=== PATIENT | female | born 1970 | race Caucasian/White ===

== ENCOUNTER 2017-12-17 17:02 | Emergency (ER) | payer MEDICARE ==
[~2017-12-17] VITALS: Ht 160 cm; Wt 90.7 kg
[~2017-12-17 17:02] MED LIST: ABILIFY10 MG PO; AMITRIPTYLINE H25 M3 GT; AMOXICILLIN 50500 M1 PO; BACTRIM DS TAB1 EACH PO; CYMBALTA60 MG PO; LEVSIN SL; LIPITOR10 MG PO; METROGEL-VAGINA70 GM VG; NORCO 5-325 TA1 EACH PO; PROTONIX40 MG PO; ZANTAC 150MG T150 M1 PO; ZOFRAN4 MG PO
[2017-12-17] MEDS ORDERED: NEURONTIN 300300 M1 (17:20)
[2017-12-17] MEDS ORDERED: ATIVAN1 MG PO (17:20)
[2017-12-17] MEDS ORDERED: BACLOFEN 10MG T10 MG PO (17:21)
[2017-12-17] MEDS ORDERED: CELEXA20 MG PO (17:21)
[2017-12-17 17:42] LABS: URINE BILIRUBIN NEGATIVE (Negative); URINE BLOOD 1+ (Negative); URINE CLARITY CLEAR; URINE COLOR YELLOW; URINE GLUCOSE-RANDOM NEGATIVE (Negative); URINE KETONES NEGATIVE (Negative); URINE LEUKOCYTES-REFLEX NEGATIVE (Negative); URINE NITRITE-REFLEX NEGATIVE (Negative); URINE PROTEIN NEGATIVE (Negative); URINE SPECIFIC GRAVITY >= 1.030 (1.005-1.030); URINE UROBILINOGEN 0.2 E.U./dl (0.2-1.0)
[2017-12-17 18:00] LABS: HYALINE CASTS 0-3 Few /LPF (None Seen); MUCUS >6 Heavy strn/LPF (None Seen); SQUAMOUS >10 Many /LPF (0-3)
[2017-12-17 18:01] LABS: BACTERIA-REFLEX 1-9 Few /HPF (None Seen); CRYSTALS None Seen /LPF (None Seen); URINE RBC 0-2 Rare /HPF (0-2); URINE WBC-REFLEX 0-5 Rare /HPF (0-5)
[2017-12-17] MEDS ORDERED: IBUPROFEN 600600 M1 PO (18:03)
[2017-12-17] MEDS ORDERED: AMOXICILLIN 50500 MG PO (18:03)
[2017-12-17 18:08] VITALS: BP 148/80
== END 2017-12-17 18:08 | disposition home or self-care (01) ==
LOC: M.ERS 17:02
PROVIDERS: Nurse Practitioner Family
DX: J06.9 Acute upper respiratory infection, unspecified (principal); F31.9 Bipolar disorder, unspecified; G89.29 Other chronic pain; M54.9 Dorsalgia, unspecified; F25.9 Schizoaffective disorder, unspecified; F17.210 Nicotine dependence, cigarettes, uncomplicated; Z90.710 Acquired absence of both cervix and uterus; Z88.8 Allergy status to other drugs, medicaments and biological substances

== ENCOUNTER 2018-02-10 11:29 | Emergency (ER) | payer MEDICARE ==
[~2018-02-10] VITALS: Ht 160 cm; Wt 93.0 kg
[~2018-02-10 11:29] MED LIST changes: +AMOXICILLIN 50500 MG PO; +ATIVAN1 MG PO; +BACLOFEN 10MG T10 MG PO; +CELEXA20 MG PO; +IBUPROFEN 600600 M1 PO; +NEURONTIN 300300 M1
[2018-02-10 11:33] VITALS: BP 125/85
[2018-02-10] MEDS ORDERED: LATUDA20 MG PO (11:35)
[2018-02-10] MEDS ORDERED: LITHIUM CARBON600 MG PO (11:36)
[2018-02-10] MEDS ORDERED: ATIVAN1 MG PO (12:20)
== END 2018-02-10 12:31 | disposition home or self-care (01) ==
LOC: M.ERS 11:29
DX: H92.03 Otalgia, bilateral (principal); Z76.0 Encounter for issue of repeat prescription; F31.9 Bipolar disorder, unspecified; G89.29 Other chronic pain; M54.9 Dorsalgia, unspecified; Z88.8 Allergy status to other drugs, medicaments and biological substances; Z90.710 Acquired absence of both cervix and uterus

== ENCOUNTER 2018-04-08 10:31 | Emergency (ER) | payer MEDICARE ==
[~2018-04-08] VITALS: Ht 172.7 cm; Wt 107.5 kg
[~2018-04-08 10:31] MED LIST changes: +LATUDA20 MG PO; +LITHIUM CARBON600 MG PO
[2018-04-08] MEDS ORDERED: RISPERDAL 1 MG T1 MG PO (10:47)
[2018-04-08] MEDS ORDERED: IBUPROFEN 600600 M1 PO (10:47)
[2018-04-08] MEDS ORDERED: SERTRALINE HCL50 MG PO (10:47)
[2018-04-08 11:15] LABS: URINE BILIRUBIN NEGATIVE (Negative); URINE BLOOD TRACE (Negative); URINE CLARITY CLEAR; URINE COLOR ORANGE; URINE GLUCOSE-RANDOM TRACE (Negative); URINE KETONES NEGATIVE (Negative); URINE PROTEIN TRACE (Negative); URINE SPECIFIC GRAVITY 1.025 (1.005-1.030)
[2018-04-08 11:24] LABS: URINE LEUKOCYTES-REFLEX 3+ (Negative); URINE NITRITE-REFLEX POSITIVE (Negative)
[2018-04-08] MEDS ORDERED: HYDROXYZINE HCL25 M1 PO (11:32)
[2018-04-08] MEDS ORDERED: BACTRIM DS TAB1 EAC1 PO (11:33)
[2018-04-08 11:39] VITALS: BP 125/87
[2018-04-08 11:42] LABS: URINE WBC-REFLEX 6-15 Few /HPF (0-5)
[2018-04-08 11:43] LABS: URINE RBC 0-2 Rare /HPF (0-2)
[2018-04-08 11:44] LABS: MUCUS >6 Heavy strn/LPF (None Seen)
[2018-04-08 11:45] LABS: CRYSTALS None Seen /LPF (None Seen); HYALINE CASTS 0-3 Few /LPF (None Seen); SQUAMOUS >10 Many /LPF (0-3)
== END 2018-04-08 11:40 | disposition home or self-care (01) ==
LOC: M.ERS 10:31
PROVIDERS: Nurse Practitioner Family
DX: N30.90 Cystitis, unspecified without hematuria (principal); F41.9 Anxiety disorder, unspecified; F31.9 Bipolar disorder, unspecified; G89.29 Other chronic pain; M54.9 Dorsalgia, unspecified; G62.9 Polyneuropathy, unspecified; F25.9 Schizoaffective disorder, unspecified; F17.210 Nicotine dependence, cigarettes, uncomplicated; Z90.710 Acquired absence of both cervix and uterus; Z88.8 Allergy status to other drugs, medicaments and biological substances; Z88.6 Allergy status to analgesic agent

== ENCOUNTER 2018-05-01 19:14 | Emergency (ER) | payer MEDICARE ==
[~2018-05-01] VITALS: Ht 160 cm; Wt 90.7 kg
[~2018-05-01 19:14] MED LIST changes: +BACTRIM DS TAB1 EAC1 PO; +HYDROXYZINE HCL25 M1 PO; +RISPERDAL 1 MG T1 MG PO; +SERTRALINE HCL50 MG PO
[2018-05-01] MEDS ORDERED: KEFLEX500 M1 (19:25)
[2018-05-01] MEDS ORDERED: CYCLOBENZAPRINE5 MG PO (19:34)
[2018-05-01] MEDS ORDERED: VOLTAREN GEL 1100 G2 TOP (19:34)
[2018-05-01 19:43] VITALS: BP 128/82
== END 2018-05-01 19:43 | disposition home or self-care (01) ==
LOC: M.ERS 19:14
DX: G89.29 Other chronic pain (principal); M54.9 Dorsalgia, unspecified; F31.9 Bipolar disorder, unspecified; G62.9 Polyneuropathy, unspecified; F25.9 Schizoaffective disorder, unspecified; E66.01 Morbid (severe) obesity due to excess calories; F17.210 Nicotine dependence, cigarettes, uncomplicated; Z68.35 Body mass index [BMI] 35.0-35.9, adult; Z90.710 Acquired absence of both cervix and uterus; Z88.8 Allergy status to other drugs, medicaments and biological substances

== ENCOUNTER 2019-08-14 15:06 | Emergency (ER) | payer OTHER, MEDICAID ==
[~2019-08-14] VITALS: Ht 160 cm; Wt 90.7 kg
[~2019-08-14 15:06] MED LIST changes: +CYCLOBENZAPRINE5 MG PO; +KEFLEX500 M1; +VOLTAREN GEL 1100 G2 TOP
[2019-08-14] MEDS ORDERED: LOXAPINE50 MG PO (15:22)
[2019-08-14] MEDS ORDERED: VRAYLAR6 MG PO (15:22)
[2019-08-14] MEDS ORDERED: TRAZODONE HCL100 MG PO (15:22)
[2019-08-14] MEDS ORDERED: LOXAPINE25 MG PO (15:22)
[2019-08-14] MEDS ORDERED: LORAZEPAM 1 MG T1 MG PO (15:23)
[2019-08-14 15:52] LABS: INFLUENZA A ANTIGEN Negative (Negative); INFLUENZA B ANTIGEN Negative (Negative)
[2019-08-14] MEDS ORDERED: TYLENOL WITH CO1 TA1 PO (17:04)
[2019-08-14] MEDS ORDERED: AUGMENTIN 875-1 EACH PO (17:04)
[2019-08-14] MEDS ORDERED: CIPRODEX OTIC7.5 ML OTIC (17:04)
[2019-08-14 17:10] VITALS: BP 144/96
== END 2019-08-14 17:11 | disposition home or self-care (01) ==
LOC: M.ERS 15:06
PROVIDERS: Nurse Practitioner Family
DX: H66.92 Otitis media, unspecified, left ear (principal); H72.92 Unspecified perforation of tympanic membrane, left ear; F31.9 Bipolar disorder, unspecified; G89.29 Other chronic pain; E66.01 Morbid (severe) obesity due to excess calories; Z68.35 Body mass index [BMI] 35.0-35.9, adult; Z79.899 Other long term (current) drug therapy; Z88.1 Allergy status to other antibiotic agents; Z90.710 Acquired absence of both cervix and uterus; Z88.8 Allergy status to other drugs, medicaments and biological substances

== ENCOUNTER 2020-10-14 20:33 | Emergency (ER) | payer OTHER, MEDICAID ==
[~2020-10-14] VITALS: Ht 160 cm; Wt 122.5 kg
[~2020-10-14 20:33] MED LIST changes: +AUGMENTIN 875-1 EACH PO; +CIPRODEX OTIC7.5 ML OTIC; +LORAZEPAM 1 MG T1 MG PO; +LOXAPINE25 MG PO; +LOXAPINE50 MG PO; +TRAZODONE HCL100 MG PO; +TYLENOL WITH CO1 TA1 PO; +VRAYLAR6 MG PO
[2020-10-14 21:08] LABS: URINE BILIRUBIN NEGATIVE (Negative); URINE BLOOD 3+ (Negative); URINE CLARITY CLEAR; URINE COLOR YELLOW; URINE GLUCOSE-RANDOM NEGATIVE (Negative); URINE KETONES NEGATIVE (Negative); URINE LEUKOCYTES-REFLEX NEGATIVE (Negative); URINE NITRITE-REFLEX NEGATIVE (Negative); URINE PROTEIN NEGATIVE (Negative); URINE UROBILINOGEN 0.2 E.U./dl (0.2-1.0)
[2020-10-14 21:15] LABS: CASTS None Seen /LPF (None Seen); CRYSTALS None Seen /LPF (None Seen); MUCUS None Seen strn/LPF (None Seen); SQUAMOUS >10 Many /LPF (0-3)
[2020-10-14 21:16] LABS: BACTERIA-REFLEX 1-9 Few /HPF (None Seen); URINE RBC 3-10 Few /HPF (0-2); URINE WBC-REFLEX 0-5 Rare /HPF (0-5)
[2020-10-14 21:34] LABS: ABSOLUTE BASOPHILS 0.1 thou/uL (0.0-0.2); ABSOLUTE EOSINOPHILS 0.1 thou/uL (0.0-0.7); ABSOLUTE LYMPHOCYTES 3.9 thou/uL (0.8-5.3); ABSOLUTE MONOCYTES 0.6 thou/uL (0.0-1.2); ABSOLUTE NEUTROPHILS 3.6 thou/uL (1.6-8.1); BASOPHILS 0.6 %; EOSINOPHILS 1.8 %; HEMATOCRIT 45.4 % (37.0-47.0); HEMOGLOBIN 15.1 gm/dL (12.0-15.0); LYMPHOCYTES 46.4 %; MCH 30.1 pg (26.0-34.0); MCHC 33.3 g/dL (28.0-37.0); MCV 90.4 fL (80.0-100.0); MONOCYTES 7.6 %; MPV 8.8 fl. (7.2-11.1); NUCLEATED RBCS 0 /100WBC; PLATELET COUNT* 204 thou/uL (150-400); POLYS 43.6 %; RBC 5.03 mil/uL (4.20-5.00); RDW-CV 14.3 % (10.5-14.5); WBC 8.3 thou/uL (4.0-11.0)
[2020-10-14 21:42] LABS: CALCIUM 8.8 mg/dL (8.5-10.1); POTASSIUM 3.1 mmol/L (3.5-5.1)
[2020-10-14] MEDS ORDERED: PREDNISONE50 MG PO (22:08)
[2020-10-14] MEDS ORDERED: PROAIR HFA8.5 GM INH (22:08)
[2020-10-14 23:10] VITALS: BP 132/76
== END 2020-10-14 23:12 | disposition home or self-care (01) ==
LOC: M.ERS 20:33
PROVIDERS: Emergency Medicine
DX: R31.9 Hematuria, unspecified (principal); J40 Bronchitis, not specified as acute or chronic; Z20.822 Contact with and (suspected) exposure to COVID-19; G89.29 Other chronic pain; G62.9 Polyneuropathy, unspecified; E66.01 Morbid (severe) obesity due to excess calories; Z68.42 Body mass index [BMI] 45.0-49.9, adult; Z90.710 Acquired absence of both cervix and uterus; Z88.8 Allergy status to other drugs, medicaments and biological substances

== ENCOUNTER 2021-03-19 21:52 | Inpatient (IN) | payer OTHER, MEDICAID ==
[~2021-03-19] VITALS: Ht 160 cm; Wt 115.3 kg
[~2021-03-19 21:52] MED LIST changes: -NEURONTIN 300300 M1; +NEURONTIN 300M300 M2 PO; +PREDNISONE50 MG PO; +PROAIR HFA8.5 GM INH
[2021-03-19 22:07] VITALS: BP 211/90
[2021-03-19] MEDS ORDERED: MELOXICAM15 MG PO (22:11)
[2021-03-19 22:35] LABS: ABSOLUTE BASOPHILS 0.1 thou/uL (0.0-0.2); ABSOLUTE EOSINOPHILS 0.2 thou/uL (0.0-0.7); ABSOLUTE LYMPHOCYTES 2.9 thou/uL (0.8-5.3); EOSINOPHILS 1.7 %; HEMATOCRIT 47.1 % (37.0-47.0); HEMOGLOBIN 15.7 gm/dL (12.0-15.0); LYMPHOCYTES 28.5 %; MCH 30.2 pg (26.0-34.0); MCHC 33.4 g/dL (28.0-37.0); MCV 90.4 fL (80.0-100.0); MONOCYTES 10.2 %; NUCLEATED RBCS 0 /100WBC; PLATELET COUNT* 208 thou/uL (150-400); POLYS 58.6 %; RBC 5.21 mil/uL (4.20-5.00); RDW-CV 14.7 % (10.5-14.5); WBC 10.2 thou/uL (4.0-11.0)
[2021-03-19 22:46] LABS: CALCIUM 8.8 mg/dL (8.5-10.1); CREATININE 0.9 mg/dL (0.6-1.3); POTASSIUM 3.6 mmol/L (3.5-5.1)
[2021-03-19 23:03] LABS: ALBUMIN 3.2 g/dL (3.4-5.0); TOTAL BILIRUBIN 0.4 mg/dL (<0.1-1.0); TOTAL PROTEIN 6.9 g/dL (6.4-8.2)
[2021-03-19 23:42] LABS: URINE BILIRUBIN NEGATIVE (Negative); URINE BLOOD TRACE (Negative); URINE CLARITY CLEAR; URINE COLOR YELLOW; URINE GLUCOSE-RANDOM NEGATIVE (Negative); URINE KETONES NEGATIVE (Negative); URINE LEUKOCYTES-REFLEX NEGATIVE (Negative); URINE NITRITE-REFLEX NEGATIVE (Negative); URINE PROTEIN NEGATIVE (Negative); URINE SPECIFIC GRAVITY >= 1.030 (1.005-1.030); URINE UROBILINOGEN 0.2 E.U./dl (0.2-1.0)
[2021-03-20 06:30] VITALS: BP 142/92
[2021-03-20 08:40] VITALS: BP 150/85
[2021-03-20 09:00] VITALS: BP 128/89
[2021-03-20 11:13] VITALS: BP 128/89
[2021-03-20 11:30] VITALS: BP 164/106
--- NOTE | 2021-03-20 11:43 | EKG ---
[place] [address] ELECTROCARDIOGRAM REPORT Name: ESVIN HENRYRICRONAN Pimentel Room: [address]#: [id number] Admission: 03/20/21 Attend Phys: Ronald Jim, Discharge: Date of : 70 Date of Service: 03/19/215 Report #: [id number] THIS REPORT FOR: //name// [facility] ED Test Date: 2021-03-19 Test Time: 22:25:22 Pat Name: SATURNINO HENRY Department: Room: [facility] Gender: F Pick Up Driver: : 1970 Requested By: Elva Candelaria Order Number: [id number] MD: Mathew Orellana Measurements Intervals [place] Rate: 103 P: 69 MD: 151 QRS: 71 QRSD: 87 T: 57 QT: 339 QTc: 444 Interpretive Statements Sinus tachycardia No previous ECG available for comparison Electronically Signed On 03-20-2021 11:42:47 CDT by Mathew Orellana [email or web address] <ELECTRONICALLY SIGNED> By: Rolly Orellana MD, [facility] 03/20/21 1142 2225 2225 Rolly Orellana MD, [facility] /EPI
--- NOTE | 2021-03-20 16:09 | 2DMMODE ---
[place] [address] 2 D/M-MODE ECHOCARDIOGRAM Name: SATURNINO HENRY Margarito Room: [address] MRosettaRRosetta#: [id number] Admission: 03/20/21 Attend Phys: Ronald Jim, Discharge: Date of : 70 Date of Service: 03/20/21 1609 Report #: [id number] THIS REPORT FOR: cc: May Singh,Rolly Mcneill MD [facility] ~ APPROVED REPORT Study performed: 03/20/2021 11:06:59 EXAM: Comprehensive 2D, Doppler, and color-flow Echocardiogram Patient Location: In-Patient Room #: 225 Status: routine BSA: 2.16 HR: 67 bpm BP: 150/85 mmHg Rhythm: NSR Other Information Study Quality: Good Indications Dyspnea 2D Dimensions IVSd: 12.09 (7-11mm) LVOT Diam: 20.89 (18-24mm) LVDd: 43.90 mm PWd: 10.79 (7-11mm) Ascending Ao: 33.85 (22-36mm) LVDs: 27.17 (25-40mm) Aortic Root: 30.36 mm Volumes Left Atrial Volume (Systole) LA ESV Index: 34.40 mL/m2 Aortic Valve AoV Peak Waldo.: 1.55 m/s AO Peak Gr.: 9.59 mmHg LVOT Max P.52 mmHg AO Mean Gr.: 5.72 mmHg LVOT Mean P.91 mmHg LVOT Max V: 1.37 m/s AO V2 VTI: 26.24 cm LVOT Mean V: 0.91 m/s INDERJIT (VTI): 3.36 cm2 LVOT V1 VTI: 25.71 [place] [address] 2 D/M-MODE ECHOCARDIOGRAM Name: SATURNINO HENRY Room: [address]R.#: [id number] Admission: 03/20/21 Attend Phys: Ronald Jim, Discharge: Date of : 70 Date of Service: 03/20/21 1609 Report #: [id number] Mitral Valve E/A Ratio: 1.05 MV Decel. Time: 217.55 ms MV E Max Waldo.: 1.08 m/s MV PHT: 63.09 ms MVA (PHT): 3.49 cm2 TDI E/Lateral E': 9.82 E/Medial E': 7.71 Medial E' Waldo.: 0.14 m/s Lateral E' Waldo.: 0.11 m/s Pulmonary Valve PV Peak Waldo.: 1.13 m/s PV Peak Gr.: 5.11 mmHg Left Ventricle The left ventricle is normal size. There is normal LV segmental wall motion. There is normal left ventricular wall thickness. Left ventricular systolic function is normal. The left ventricular ejection fraction is within the normal range. LVEF is 55-60%. Grade I - abnormal relaxation pattern. Right Ventricle The right ventricle is normal size. The right ventricular systolic function is normal. Atria The left atrium size is normal. The right atrium size is normal. Aortic Valve The aortic valve is normal in structure. No aortic regurgitation is present. There is no aortic valvular stenosis. Mitral Valve The mitral valve is normal in structure. Trace mitral regurgitation. No evidence of mitral valve stenosis. Tricuspid Valve The tricuspid valve is normal in structure. Unable to assess PA pressure. Trace tricuspid regurgitation. Pulmonic Valve The pulmonary valve is normal in structure. There is no pulmonic [place] [address] 2 D/M-MODE ECHOCARDIOGRAM Name: SATURNINO HENRY Room: [address]#: [id number] Admission: 03/20/21 Attend Phys: Ronald Jim, Discharge: Date of : 70 Date of Service: 03/20/21 1609 Report #: [id number] Great Vessels The aortic root is normal in size. IVC is normal in size and collapses >50% with inspiration. Pericardium There is no pericardial effusion. <Conclusion> LVEF is 55-60%. The left ventricle is normal size. There is normal left ventricular wall thickness. There is normal LV segmental wall motion. The aortic valve is normal in structure. Trace mitral regurgitation. Unable to assess PA pressure. Trace tricuspid regurgitation. Grade I - abnormal relaxation pattern. <ELECTRONICALLY SIGNED> By: Rolly Orellana MD, FACC 03/20/21 1609 1609 1609 Rolly Orellana MD, FACC /INF
--- NOTE | 2021-03-20 16:33 | NUR ---
Admitted from AMBULANCE Admission Assessment MENTAL STATUS UPON ADM A&O X3 Living Arrangements: HOUSE Lives with: or they live with patient DAUGHTER KAREEM GODWIN [phone] SUPPORTMENT SYSTEM DAUGHTER Can patient return to prior living arrangements? YES Activities of daily living: Independent
[2021-03-20 20:00] VITALS: BP 159/94
--- NOTE | 2021-03-20 20:00 | NUR ---
RECEIVED REPORT AND ASSUMED CARE OF PT, ASESSMENT COMPLETED. PT USING CALL LIGHT FREQ FOR MULTIPLE THINGS. ATTEMPTED TO EDUCATE AND REASSURE PT. O2 ON AT 3L/NC. TELEMETRY ON SHOWING ST. BLE EDEMA 2+. WILL CONT TO MONITOR AND ASSIST NEEDED. REMAINS IN ISOLATION DUE TO COVID PENDING.
[2021-03-21] VITALS: BP 163/84
--- NOTE | 2021-03-21 03:54 | NUR ---
PT RESTLESS AND SOME WHAT DEMANDING. REQUESTING HER BUBBILER OFF NOW, KEEPING HER AWAKE. INCREASED O2 TO 5L/NC DUE TO SAT STAYING AT 89%. ASKING FOR ANOTHER TRAZADONE, EXPLAINED HS ONLY.
[2021-03-21 04:00] VITALS: BP 160/104
[2021-03-21 04:44] LABS: ABSOLUTE BASOPHILS 0.1 thou/uL (0.0-0.2); ABSOLUTE LYMPHOCYTES 2.5 thou/uL (0.8-5.3); ABSOLUTE MONOCYTES 0.8 thou/uL (0.0-1.2); ABSOLUTE NEUTROPHILS 10.7 thou/uL (1.6-8.1); BASOPHILS 0.7 %; EOSINOPHILS 0.1 %; HEMATOCRIT 49.8 % (37.0-47.0); HEMOGLOBIN 16.1 gm/dL (12.0-15.0); LYMPHOCYTES 17.8 %; MCH 29.6 pg (26.0-34.0); MCHC 32.3 g/dL (28.0-37.0); MCV 91.6 fL (80.0-100.0); MONOCYTES 5.7 %; MPV 9.3 fl. (7.2-11.1); NUCLEATED RBCS 0 /100WBC; PLATELET COUNT* 207 thou/uL (150-400); POLYS 75.7 %; RBC 5.43 mil/uL (4.20-5.00); RDW-CV 14.7 % (10.5-14.5); WBC 14.2 thou/uL (4.0-11.0)
--- NOTE | 2021-03-21 06:46 | NUR ---
INFORMED PT THAT PCR WAS NEGATIVE AND THEN ASKING IF SHE COULD GO HOME. EXPLAINED OXYGEN LEVEL AND WOULD LIKE IT TO STAY AT LEAST 92% ON RA. PT CURRENTLY ON 5L/NC WITH SAT OF 90%. DENIES SOA. UP TO BSC WITH STEADY GAIT. TELEMETRY CONT TO SHOW ST. HS GOALS OF REST AND SAFETY ACHIEVED. HOURLY ROUNDING OBSERVED.
[2021-03-21 09:11] LABS: CHOLESTEROL 196 mg/dL (<200); HDL CHOLESTEROL 47 mg/dL (>40); LDL CHOLESTEROL 137 mg/dL (<100); SERUM ASSESSMENT Clear; TC:HDL 4.2 Ratio (Not establshd); TRIGLYCERIDE 61 mg/dL (<150); VLDL 12 mg/dL (<40)
[2021-03-21 12:00] VITALS: BP 154/92
[2021-03-21 12:26] LABS: POTASSIUM 3.6 mmol/L (3.5-5.1)
[2021-03-21 12:29] LABS: MAGNESIUM 1.8 mg/dL (1.8-2.4); PHOSPHORUS* 2.9 mg/dL (2.5-4.9)
--- NOTE | 2021-03-21 15:34 | NUR ---
PLAN OF CARE: PHYSICIAN INFORMS OF PLAN FOR THE PT TO D/C HOME PENDING ABLE TO WEAN PT'S O2 NEEDS AND PULM RECOMMENDATIONS. PT MAY NEED HOME OXYGEN AT D/C. CM WILL REMAIN AVAILABLE TO ASSIST AND FOLLOW NEEDED.
[2021-03-21 16:00] VITALS: BP 145/88
--- NOTE | 2021-03-21 17:51 | CON ---
[address] [address] CONSULTATION Name: SATURNINO HENRY Room: [address] IN M.R.#: [id number] Admission: 03/21/21 Attend Phys: Ronald Jim MD Discharge: Date of : 70 Report #: [id number] THIS REPORT FOR: cc: May Singh,Brooks Sequeira MD [facility] ~ cc: May Singh DO DATE OF CONSULTATION: 03/21/2021 CARDIOLOGY CONSULTATION HISTORY OF PRESENT ILLNESS: The patient is a 50-year-old single white female who I was asked to see in the hospital today because of shortness of breath. The patient has no previous history of heart disease. She is not very active at this time. She does smoke a half pack of cigarettes a day. Recently, she has had increasing shortness of breath. She does cough. She has occasional edema. Yesterday, she apparently had a spider bite in her chest. Her ex- brought her to the emergency room where she was admitted. Cardiology consultation requested. She denies exertional tightness in her chest, palpitations or syncope. PAST MEDICAL HISTORY: She has had carpal tunnel surgery, hysterectomy, manic depressive illness. No history of hypertension, diabetes or hyperlipidemia. CURRENT MEDICATIONS: Include Ativan, baclofen, meloxicam, gabapentin, trazodone. ALLERGIES: SHE HAS AN ALLERGY TO BENTYL. FAMILY HISTORY: Father had a pacemaker. SOCIAL HISTORY: She is , currently lives with her ex- here in [place]. She goes for walks every day. Smokes half pack of cigarettes a day. No alcohol abuse. No illicit drug use. REVIEW OF SYSTEMS: She has no history of stroke, asthma, liver disease, kidney disease, cancer or chronic skin condition. She has a history of manic depressive illness. She is followed by psychiatrist. PHYSICAL EXAMINATION: VITAL SIGNS: On admission, she had a blood pressure 130/80, pulse 80. She is afebrile. HEENT: She was anicteric. Conjunctivae pink. Mucous membranes moist. NECK: Veins do not appear distended. No carotid bruits. [place] [address] CONSULTATION Name: SATURNINO HENRY Room: [address] IN [facility]#: [id number] Admission: 03/21/21 Attend Phys: Ronald Jim MD Discharge: Date of : 70 Report #: [id number] CHEST: Clear to auscultation. CARDIAC: Regular rate and rhythm without rub. ABDOMEN: Obese. EXTREMITIES: Had no pitting edema. SKIN: Warm and dry. NEUROLOGIC: Nonfocal. ECG showed a sinus rhythm. There were no ST or T-wave change noted. The patient had an echocardiogram done yesterday after she was admitted, that showed ejection fraction of 60%, no significant valvular abnormalities. X-RAYS: The patient had a chest x-ray that showed normal heart size, clear lung de souza. She actually had a CT scan of the chest using a PE protocol that showed no pulmonary embolus, no pleural effusion, clear lung de souza. She had a CT scan of the abdomen that showed atelectasis in the lungs, adrenal mass. LABORATORY DATA: Potassium 4.6, creatinine 1.0. Troponins were all less than 0.06. BNP 108, LDL 137. TSH 0.6. D-dimer 1.3. Hemoglobin 16.1. Her COVID antigen stat test was negative. Urinalysis, trace blood, trace leukocytes, few wbc's, few bacteria. IMPRESSION AND RECOMMENDATIONS: 1. Shortness of breath. Suspect secondary to chronic obstructive pulmonary disease. 2. Tobacco abuse. 3. Obesity. 4. Recent spider bite, does not appear infected at this time. 5. Manic depressive illness. Recommend no further cardiac evaluation or cardiac medications. <ELECTRONICALLY SIGNED> By: Brooks Quiroga MD, [facility] 03/21/21 1751 1139 1230Dalalit Quiroga MD, FACC /nt
[2021-03-21 20:00] VITALS: BP 154/97
[2021-03-22 00:24] VITALS: BP 140/80
[2021-03-22 05:18] VITALS: BP 167/85
[2021-03-22 05:22] LABS: HEMATOCRIT 46.7 % (37.0-47.0); HEMOGLOBIN 15.3 gm/dL (12.0-15.0); MCH 29.6 pg (26.0-34.0); MCHC 32.8 g/dL (28.0-37.0); MCV 90.4 fL (80.0-100.0); MPV 9.6 fl. (7.2-11.1); RBC 5.17 mil/uL (4.20-5.00); RDW-CV 14.8 % (10.5-14.5)
[2021-03-22 05:31] LABS: CALCIUM 8.9 mg/dL (8.5-10.1); CREATININE 0.9 mg/dL (0.6-1.3); POTASSIUM 3.6 mmol/L (3.5-5.1)
[2021-03-22 07:04] LABS: AMP/METHAMP Negative (Negative); BARBITURATES Negative (Negative); BENZODIAZEPINES Negative (Negative); COCAINE Negative (Negative); METHADONE Negative (Negative); OPIATES Negative (Negative); PCP Negative (Negative); THC POSITIVE (Negative)
--- NOTE | 2021-03-22 07:09 | NUR ---
ASSUMED CARE OF PT AFTER REPORT AT 1930. PT A&OX4. VSS. PHYSICAL ASSESSMENT COMPLETED AND CHARTED. PT ON O2 AT 2L NC. PT TRACING SR/ST ON TELE. PT COMPLAINED OF BACK PAIN-REQUESTED FOR LIDOCAINE PATCH-PROVIDER MADE AWARE WITH NEW ORDERS. CALL LIGHT WITHIN REACH.
[2021-03-22 08:00] VITALS: BP 148/70
[2021-03-22] MEDS ORDERED: AZITHROMYCIN500 MG PO (11:44)
[2021-03-22] MEDS ORDERED: PREDNISONE 10 M10 MG PO (11:44)
[2021-03-22 12:00] VITALS: BP 161/89
[2021-03-22 12:58] VITALS: BP 167/85
== END 2021-03-22 17:00 | disposition home or self-care (01) | DRG 189 ==
LOC: M.ERS 21:52 → M.TBA-ER 03-20 02:38 → M.2W 03-20 02:38
PROVIDERS: Emergency Medicine; Internal Medicine; ADMIT Internal Medicine; ATTEND Internal Medicine
DX: J96.01 Acute respiratory failure with hypoxia (principal); Z68.42 Body mass index [BMI] 45.0-49.9, adult; J44.1 Chronic obstructive pulmonary disease with (acute) exacerbation; F31.9 Bipolar disorder, unspecified; G89.29 Other chronic pain; F17.210 Nicotine dependence, cigarettes, uncomplicated; I10 Essential (primary) hypertension; E27.8 Other specified disorders of adrenal gland; E66.01 Morbid (severe) obesity due to excess calories; G62.9 Polyneuropathy, unspecified; M54.9 Dorsalgia, unspecified; Z20.822 Contact with and (suspected) exposure to COVID-19; Z79.899 Other long term (current) drug therapy; Z90.710 Acquired absence of both cervix and uterus; Z88.8 Allergy status to other drugs, medicaments and biological substances; Z91.09 Other allergy status, other than to drugs and biological substances

== ENCOUNTER 2021-06-30 17:57 | Emergency (ER) | payer OTHER, MEDICAID ==
[~2021-06-30] VITALS: Ht 162.6 cm; Wt 90.7 kg
[~2021-06-30 17:57] MED LIST changes: +AZITHROMYCIN500 MG PO; +MELOXICAM15 MG PO; +PREDNISONE 10 M10 MG PO
[2021-06-30 19:17] VITALS: BP 138/84
== END 2021-06-30 19:17 | disposition home or self-care (01) ==
LOC: M.ERS 17:57
DX: T16.2XXA Foreign body in left ear, initial encounter (principal); F32.9 Major depressive disorder, single episode, unspecified; E66.01 Morbid (severe) obesity due to excess calories; Z90.710 Acquired absence of both cervix and uterus; Z79.899 Other long term (current) drug therapy; Z88.8 Allergy status to other drugs, medicaments and biological substances; X58.XXXA Exposure to other specified factors, initial encounter; Y93.89 Activity, other specified; Y92.89 Other specified places as the place of occurrence of the external cause; Y99.8 Other external cause status

== ENCOUNTER 2021-07-21 15:45 | Inpatient (IN) | payer OTHER, MEDICAID ==
[~2021-07-21] VITALS: Ht 162.6 cm; Wt 90.7 kg
[2021-07-21 16:19] VITALS: BP 187/113
[2021-07-21] MEDS ORDERED: MELOXICAM15 MG PO (16:23)
[2021-07-21] MEDS ORDERED: ASPERCREME1 EACH TOP (16:23)
--- NOTE | 2021-07-21 16:25 | NUR ---
PT REFUSING EKG AND WATER PROJECT MANAGER AT THIS TIME.
[2021-07-21 17:20] LABS: ABSOLUTE LYMPHOCYTES 1.8 thou/uL (0.8-5.3); ABSOLUTE MONOCYTES 0.5 thou/uL (0.0-1.2); ABSOLUTE NEUTROPHILS 1.8 thou/uL (1.6-8.1); BASOPHILS 0.6 %; EOSINOPHILS 0.6 %; HEMATOCRIT 50.3 % (37.0-47.0); LYMPHOCYTES 43.7 %; MCHC 33.8 g/dL (28.0-37.0); MCV 91.7 fL (80.0-100.0); MONOCYTES 12.4 %; MPV 8.7 fl. (7.2-11.1); NUCLEATED RBCS 0 /100WBC; PLATELET COUNT* 164 thou/uL (150-400); POLYS 42.7 %; RBC 5.49 mil/uL (4.20-5.00); RDW-CV 14.3 % (10.5-14.5); WBC 4.2 thou/uL (4.0-11.0)
[2021-07-21 18:08] LABS: INFLUENZA A ANTIGEN Negative (Negative); INFLUENZA B ANTIGEN Negative (Negative)
[2021-07-21 19:33] LABS: CREATININE 0.8 mg/dL (0.6-1.3); POTASSIUM 3.9 mmol/L (3.5-5.1); TOTAL BILIRUBIN 0.5 mg/dL (<0.1-1.0)
[2021-07-21 22:18] LABS: BE 3.7 mmol/L (-2 to +3); pH 7.374 (7.340-7.450)
[2021-07-21 22:24] LABS: PCO2 53.7 mmHg (35.0-45.0); PO2 56.2 mmHg (75.0-100.0)
[2021-07-22 03:38] LABS: BE 3.8 mmol/L (-2 to +3); PCO2 46.7 mmHg (35.0-45.0); pH 7.416 (7.340-7.450)
[2021-07-22 05:10] VITALS: BP 176/80
--- NOTE | 2021-07-22 07:45 | NUR ---
PT WITH MANY COMPLAINTS THIS AM. WANTS TO BE STARTED ON HER HOME MEDICATIONS. WANTS SOMETHING FOR DIARRHEA AND WANTS TO COME OFF BI-PAP. ALSO WANTS NICODERM PATCH SHE SMOKE 1 1/[address]ACKS [address] CIG'S A DAY[address] ORTEGA HERE AND NOTIFIED.
[2021-07-22 08:55] VITALS: BP 152/93
--- NOTE | 2021-07-22 09:24 | NUR ---
Pt admitted on 07/21/21 for COPD exacerbation. Pt is alert and oriented. Pt reports she lives alone in an apartment. She does not drive and relies on friends to take her shopping. Pt reports she was independent in ADL's and Mobility. Pt denies hx of home health or SNF. Pt denies having any inpatient psych placement with in the last 2 years. Pt reports she saw her psychiatrist last month but is requesting information about seeing a trauma therapist in this area. CM to follow patient for discharge needs.
--- NOTE | 2021-07-22 11:47 | NUR ---
PT HAD SMALL MUCUSY BROWN STOOL.
--- NOTE | 2021-07-22 12:16 | EKG ---
[place] [address] ELECTROCARDIOGRAM REPORT Name: SATURNINO HENRY Room: [place] [address] ADM IN [facility].#: [id number] Admission: 07/21/21 Attend Phys: Jannie Nunez, Discharge: Date of : 70 Date of Service: 07/21/21 1715 Report #: [id number] THIS REPORT FOR: //name// [facility] ED Test Date: 2021-07-21 Test Time: 17:15:25 Pat Name: SATURNINO HENRY Department: Room: [facility] Gender: F Tugger Operator: BLU : 1970 Requested By: Sanjuana Gibson Order Number: [id number] MD: Brooks Quiroga Measurements Intervals [place] Rate: 103 P: 124 HI: 144 QRS: 133 QRSD: 97 T: 5 QT: 331 QTc: 434 Interpretive Statements Sinus tachycardia Probable lateral infarct, old Compared to ECG 03/19/2021 22:25:22 Myocardial infarct finding now present Electronically Signed On 07-22-2021 12:16:05 PILE FABRIC KNITTER by Brooks Quiroga [email or web address] <ELECTRONICALLY SIGNED> By: Brooks Quiroga MD, [facility] 07/22/21 1216 1715 1715 Brooks Quiroga MD, [facility] /EPI
--- NOTE | 2021-07-22 12:27 | EKG ---
[place] [address] ELECTROCARDIOGRAM REPORT Name: SATURNINO HENRY Room: [place] [address] ADM IN [facility].#: [id number] Admission: 07/21/21 Attend Phys: Jannie Nunez, Discharge: Date of : 70 Date of Service: 07/22/21 1054 Report #: [id number] THIS REPORT FOR: //name// [facility] ED Test Date: 2021-07-22 Test Time: 10:54:41 Pat Name: SATURNINO HENRY Department: Room: [place] [address] Gender: F Extruder Operator Multiple: ATIF : 1970 Requested By: Jannie Nunez Order Number: [id number] Reading MD: Brooks Quiroga Measurements Intervals [place] Rate: 113 P: 74 CT: 151 QRS: 74 QRSD: 101 T: 53 QT: 317 QTc: 435 Interpretive Statements Sinus tachycardia Minimal ST depression, lateral leads Compared to ECG 07/21/2021 17:15:25 rate has increased Electronically Signed On 07-22-2021 12:26:40 CADDIE SUPERVISOR by Brooks Quiroga [email or web address] <ELECTRONICALLY SIGNED> By: Brooks Quiroga MD, FAC 07/22/21 1226 1054 1054 Brooks Quiroga MD, [facility] /EPI
[2021-07-22 12:55] VITALS: BP 174/96
[2021-07-22 16:55] VITALS: BP 170/98
--- NOTE | 2021-07-22 17:35 | NUR ---
PT'S FRIEND BROUGHT IN HER PSYCH MEDS TO BE DISPENCED. MEDICATIONS TAKEN TO PHARMACY.
[2021-07-22 18:34] VITALS: BP 170/98
[2021-07-22 19:45] VITALS: BP 141/77
--- NOTE | 2021-07-22 19:45 | NUR ---
PT ADMITTED TO FLOOR PER CART ACCOMPANIED BY ER STAFF WITH BELONGINGS AND HOME MEDS. PT ORIENTED TO ROOM AND CALL LITE. HISTORY OBTAINED AND ASSESSMENT PERFORMED, SEE ADMIT NOTES. PT AOX4, NOT WANTING TO REMOVE CLOTHES AND SHOES AND PUT ON TELE MONITOR, KEEP IV IN, WEAR OXYGEN. EDUCATION GIVEN ON DISEASE PROCESS AND WHY THESE THINGS ARE IMPORTANT FOR HER CARE AND SO SHE WILL GET BETTER AND BE ABLE TO GO HOME. PT CALMED, GIVEN SNACK. RAC SL,ABX TO BE GIVEN PER PUMP. BED ALARM ON FOR SAFETY. CALL LITE IN EASY REACH.
[2021-07-23 04:35] LABS: HEMATOCRIT 47.7 % (37.0-47.0); HEMOGLOBIN 15.4 gm/dL (12.0-15.0); MCH 30.1 pg (26.0-34.0); MCHC 32.4 g/dL (28.0-37.0); MCV 93.1 fL (80.0-100.0); MPV 9.2 fl. (7.2-11.1); RBC 5.12 mil/uL (4.20-5.00); RDW-CV 14.2 % (10.5-14.5)
[2021-07-23 04:48] LABS: ALBUMIN 2.7 g/dL (3.4-5.0); CALCIUM 9.2 mg/dL (8.5-10.1); CREATININE 0.7 mg/dL (0.6-1.3); MAGNESIUM 2.2 mg/dL (1.8-2.4); POTASSIUM 3.7 mmol/L (3.5-5.1); TOTAL BILIRUBIN 0.3 mg/dL (<0.1-1.0); TOTAL PROTEIN 6.1 g/dL (6.4-8.2)
--- NOTE | 2021-07-23 05:00 | NUR ---
NEW ADMISSION THIS SHIFT. PT AO, NOT ALWAYS COOPERATIVE WITH CARES "I DONT NEED THAT OXYGEN" "I DONT WANT AN IV" "I CANT WEAR THIS BIPAP". HS ACCUCHECK 180, INSULIN GIVEN WITH SNACK. O2 10L WHEN NOT ON BIPAP. WORE BIPAP SEVERAL HOURS IN MIDDLE OF THE NIGHT. L HAND SL, ABX GIVEN ORDERED. UP WITH ASSIST TO BSC OVERNIGHT VOIDING WITHOUT DIFFICULTY. AM LABS. ABLE TO USE CALL LITE AND MAKE NEEDS KNOWN. BED ALARM ON FOR SAFETY.
[2021-07-23 05:24] VITALS: BP 126/78
[2021-07-23 08:00] VITALS: BP 129/67
[2021-07-23 12:00] VITALS: BP 131/70
[2021-07-23 16:00] VITALS: BP 127/72
[2021-07-23 20:35] VITALS: BP 120/69
[2021-07-24 01:03] VITALS: BP 122/62
[2021-07-24 04:00] VITALS: BP 128/74
[2021-07-24 04:58] LABS: HEMOGLOBIN 15.1 gm/dL (12.0-15.0); MCH 29.9 pg (26.0-34.0); MCHC 32.1 g/dL (28.0-37.0); MCV 93.2 fL (80.0-100.0); MPV 9.3 fl. (7.2-11.1); RBC 5.04 mil/uL (4.20-5.00); RDW-CV 14.3 % (10.5-14.5); WBC 10.6 thou/uL (4.0-11.0)
[2021-07-24 05:16] LABS: ALBUMIN 2.5 g/dL (3.4-5.0); CALCIUM 9.1 mg/dL (8.5-10.1); CREATININE 0.8 mg/dL (0.6-1.3); MAGNESIUM 2.3 mg/dL (1.8-2.4); POTASSIUM 3.9 mmol/L (3.5-5.1); TOTAL BILIRUBIN 0.3 mg/dL (<0.1-1.0); TOTAL PROTEIN 5.9 g/dL (6.4-8.2)
--- NOTE | 2021-07-24 06:36 | NUR ---
PT SLEPT WELL OVERNIGHT. AOX4, FLAT AND FORGETFUL AT TIMES. HS ACCUCHECK 225, INSULIN GIVEN ORDERED. O2 10L HI MOLLY NC AT BEGINNING AND END OF SHIFT, WEARING BIPAP FOR SEVERAL HOURS OVERNIGHT. SAT 99%. TELE SR, ST. L HAND SLIV, ABX GIVEN ORDERED. ABLE TO USE CALL LITE AND MAKE NEEDS KNOWN. UP WITH SBA TO BR TO VOID. BED ALRM ON FOR SAFETY OVERNIGHT.
[2021-07-24 09:00] VITALS: BP 130/69
[2021-07-24 12:53] VITALS: BP 123/63
[2021-07-24 14:22] LABS: BE 2.7 mmol/L (-2 to +3); PCO2 45.1 mmHg (35.0-45.0)
--- NOTE | 2021-07-24 15:54 | CON ---
[address] [address] CONSULTATION Name: SATURNINO HENRY Room: [address] IN M.R.#: [id number] Admission: 07/21/21 Attend Phys: Jannie Nunez MD Discharge: Date of : 70 Report #: [id number] THIS REPORT FOR: cc: May Singh,Brooks Sequeira MD [facility] ~ cc: May Singh DO DATE OF CONSULTATION: 07/23/2021 CARDIOLOGY CONSULTATION HISTORY OF PRESENT ILLNESS: The patient is a 51-year-old single white female who I was asked to see in the hospital today because of shortness of breath. The patient has a long history of smoking. She was actually admitted here to [facility] in March with shortness of breath. I actually saw her in consultation in March. She had an echocardiogram performed in March that showed normal left ventricular systolic function. Her shortness of breath was felt to be secondary to COPD. The patient was sent home, but readmitted 2 days ago with increased shortness of breath, fever and a cough. Because of an abnormal ECG, Cardiology consultation was requested again. She does have occasional chest tightness, although it usually occurs when she is under stress. She denied any palpitations, syncope. PAST MEDICAL HISTORY: She had carpal tunnel surgery, history of a hysterectomy. She has a history of manic depressive illness, followed by Psychiatry. No history of hypertension, diabetes, hyperlipidemia. MEDICATIONS: Include Ativan, baclofen, meloxicam, Neurontin, trazodone. ALLERGIES: SHE HAS AN ALLERGY TO HALDOL. FAMILY HISTORY: Her father had a pacemaker. SOCIAL HISTORY: , currently lives with her ex- here in [place]. She goes for walks every day with her dog. Smokes half pack of cigarettes a day. No alcohol abuse. She does use marijuana. No illicit drug use. REVIEW OF SYSTEMS: No history of stroke, liver disease, kidney disease, cancer, chronic skin condition. She has manic depressive illness. No chronic skin condition. PHYSICAL EXAMINATION: GENERAL: Revealed a middle-aged female, lying in bed[place] [address] CONSULTATION Name: SATURNINO HENRY Room: [address]#: [id number] Admission: 07/21/21 Attend Phys: Jannie Nunez MD Discharge: Date of : 70 Report #: [id number]. VITAL SIGNS: She had a blood pressure of 130/70, pulse is 90. She is afebrile. HEENT: She was anicteric. Conjunctivae pink. Mucosa moist. NECK: Veins not appear distended. No carotid bruits. Neck is supple. CHEST: Clear to auscultation. HEART: Regular rate and rhythm. ABDOMEN: Obese. EXTREMITIES: Had no pitting edema. SKIN: Cool and dry. NEUROLOGIC: Nonfocal. DIAGNOSTIC DATA: ECG on admission showed sinus tachycardia, right axis deviation, nonspecific ST segment changes. Her workup, she had a portable chest x-ray on admission that showed normal heart size, interstitial markings in the right lower lung suggesting pneumonitis. She actually had a CT scan of the chest using a PE protocol that showed no pulmonary embolus, aortic dissection. Her lab work, creatinine 0.7. Liver function studies were normal. High sensitivity troponin was only 14. BNP 102. In March, her LDL was 137. TSH 0.6. Her urine drug screen is positive for marijuana. Hematocrit 47.4. Her COVID antigen stat test in March was negative. IMPRESSION: 1. Chronic obstructive pulmonary disease. 2. Tobacco abuse. 3. Obesity. 4. Manic depressive illness. RECOMMENDATIONS: Recommend no further cardiac evaluation at this time. <ELECTRONICALLY SIGNED> By: Brooks Quiroga MD, FACC 07/24/21 1554 1213 2049Dalalit Quiroga MD, FACC /nt
[2021-07-24 18:15] VITALS: BP 136/69
[2021-07-24 20:00] VITALS: BP 164/86
--- NOTE | 2021-07-24 20:00 | NUR ---
RECEIVED REPORT AND ASSUMED CARE OF PT, ASSESSMENT COMPLETED. HOB ELEVATED, O2 ON AT 5L/HFC, SOA WITH EXCERTION. TELEMETRY ON SHOWING ST. WILL CONT TO MONITOR AND ASSIST NEEDED.
[2021-07-25 00:38] VITALS: BP 122/73
[2021-07-25 04:12] VITALS: BP 130/80
--- NOTE | 2021-07-25 06:29 | NUR ---
SLEPT WELL TONIGHT WITH BIPAP ON. THIS AM RETURNED TO [facility]. SBA TO BR WITH STEADY GAIT. NO CHANGE IN ASSESSMENT. HS GOALS OF REST AND SAFETY ACHIEVED.
[2021-07-25 08:10] VITALS: BP 151/81
[2021-07-25 14:09] VITALS: BP 145/73
--- NOTE | 2021-07-25 17:12 | NUR ---
PLAN OF CARE: CM SPOKE TO JALEESA AND THEY CONFIRM ABILITY TO DELIVER TRILOGY HERE TO THE HOSPITAL FOR THE PT TODAY. PT MAY ALSO NEED HOME O2 AT D/C. PT WILL NEED R.T. REST AND EX OX PRIOR TO D/C TO DETERMINE NEED FOR HOME O2. CM WILL REMAIN AVAILABLE TO ASSIST AND FOLLOW NEEDED.
[2021-07-25 19:35] VITALS: BP 147/73
[2021-07-25 20:15] VITALS: BP 153/82
[2021-07-26 01:03] VITALS: BP 131/65
--- NOTE | 2021-07-26 06:38 | NUR ---
PATIENT SLEPT MOST OF THE NIGHT. IV REMAINS SALINE LOCKED. PATIENT WORE BIPAP MOST OF THE NIGHT. PATIENT COULD POSSIBLY DC TODAY OR TOMORROW. WILL CONTINUE TO MONITOR.
[2021-07-26 08:00] VITALS: BP 163/87
[2021-07-26 12:12] VITALS: BP 146/84
[2021-07-26 16:15] VITALS: BP 157/80
[2021-07-26 19:14] LABS: ABSOLUTE LYMPHOCYTES 0.5 thou/uL (0.8-5.3); ABSOLUTE MONOCYTES 0.3 thou/uL (0.0-1.2); ABSOLUTE NEUTROPHILS 6.7 thou/uL (1.6-8.1); BASOPHILS 0.1 %; HEMATOCRIT 51.1 % (37.0-47.0); HEMOGLOBIN 16.8 gm/dL (12.0-15.0); LYMPHOCYTES 6.6 %; MCHC 32.9 g/dL (28.0-37.0); MCV 91.2 fL (80.0-100.0); MONOCYTES 3.5 %; MPV 9.2 fl. (7.2-11.1); NUCLEATED RBCS 0 /100WBC; PLATELET COUNT* 225 thou/uL (150-400); POLYS 89.8 %; RBC 5.61 mil/uL (4.20-5.00); RDW-CV 14.6 % (10.5-14.5); WBC 7.5 thou/uL (4.0-11.0)
--- NOTE | 2021-07-26 19:17 | NUR ---
PT WORE TRILOGY TODAY WHILE NAPPING X 2 HOURS. TOLERATED WELL. PT TRANSFERRED TO ROOM 317 VIA BED WITH ALL BELONGINGS AND CHART. REPORT CALLED TO MAYNOR RUIZ.
[2021-07-26 19:30] LABS: ALBUMIN 2.6 g/dL (3.4-5.0); CALCIUM 9.1 mg/dL (8.5-10.1); CREATININE 0.8 mg/dL (0.6-1.3); POTASSIUM 4.6 mmol/L (3.5-5.1); TOTAL BILIRUBIN 0.4 mg/dL (<0.1-1.0); TOTAL PROTEIN 6.2 g/dL (6.4-8.2)
[2021-07-26 21:00] VITALS: BP 145/84
[2021-07-27 09:30] VITALS: BP 140/72
[2021-07-27 20:30] VITALS: BP 161/74
[2021-07-28 05:00] VITALS: BP 139/78
[2021-07-28 05:00] LABS: ABSOLUTE LYMPHOCYTES 1.7 thou/uL (0.8-5.3); ABSOLUTE MONOCYTES 0.7 thou/uL (0.0-1.2); ABSOLUTE NEUTROPHILS 5.5 thou/uL (1.6-8.1); EOSINOPHILS 0.1 %; HEMATOCRIT 48.1 % (37.0-47.0); HEMOGLOBIN 15.7 gm/dL (12.0-15.0); LYMPHOCYTES 20.9 %; MCH 30.2 pg (26.0-34.0); MCHC 32.6 g/dL (28.0-37.0); MCV 92.7 fL (80.0-100.0); MONOCYTES 9.3 %; MPV 9.1 fl. (7.2-11.1); NUCLEATED RBCS 0 /100WBC; PLATELET COUNT* 210 thou/uL (150-400); POLYS 69.7 %; RBC 5.19 mil/uL (4.20-5.00); RDW-CV 14.8 % (10.5-14.5); WBC 7.9 thou/uL (4.0-11.0)
[2021-07-28 05:01] LABS: ALBUMIN 2.1 g/dL (3.4-5.0); CALCIUM 8.3 mg/dL (8.5-10.1); CREATININE 0.9 mg/dL (0.6-1.3); POTASSIUM 4.4 mmol/L (3.5-5.1); TOTAL BILIRUBIN 0.5 mg/dL (<0.1-1.0); TOTAL PROTEIN 5.1 g/dL (6.4-8.2)
--- NOTE | 2021-07-28 06:14 | NUR ---
PATIENT SLEPT PART OF THE NIGHT. PATIENT ONLY WORE TRILOGY FOR ABOUT 4 HOURS OVER NIGHT. PATIENT REMAINS ON OXYGEN AT 5L HFNC. PATIENT COULD POSSIBLY DC TODAY. WILL CONTINUE TO MONITOR.
[2021-07-28 08:30] VITALS: BP 141/79
[2021-07-28] MEDS ORDERED: NEXIUM40 MG PO (13:23)
[2021-07-28] MEDS ORDERED: PREDNISONE 10 M10 MG PO (13:24)
--- NOTE | 2021-07-28 16:08 | CON ---
[address] [address] CONSULTATION Name: SATURNINO HENRY Room: [address] IN .R.#: [id number] Admission: 07/21/21 Attend Phys: Jannie Nunez MD Discharge: Date of : 70 Report #: [id number] THIS REPORT FOR: cc: May Singh,Benji Zhang MD ~ DATE OF CONSULTATION: 07/24/[address] Nunez. INDICATION FOR CONSULTATION: Insurance request, pulmonary opinion regarding use of Trilogy or Astral upon discharge. HISTORY OF PRESENT ILLNESS: A 51-year-old female, past medical history is as mentioned below. This does include a history of psychiatric illness. The patient is on sedative medications. She is now admitted with shortness of breath. She is an active smoker. Although she required up to 15 liters of oxygen to maintain O2 saturation in the low 90s, currently, she is on 5 liters. The patient reports significant improvement in shortness of breath. She; however, was lying down and having dinner at the time of my evaluation. She has a disturbed sleep at night as well as sleepiness during the day, which is longstanding. She does not have much sputum production at this time, does not describe upper respiratory complaints, only mild swelling of lower extremities. No heartburn. REVIEW OF SYSTEMS: Negative for 12 points except as mentioned above except chronic back pain. PAST MEDICAL HISTORY: Obesity, body mass index 34; bipolar disorder; poor dental health; hysterectomy; depression; neuropathy; carpal tunnel surgery. SOCIAL HISTORY: Active smoker. No known history of heavy alcohol use or illegal drug use. CURRENT MEDICATIONS: List in [address] reviewed. HOME MEDICATIONS: List in [address] reviewed. ALLERGIES: She felt weird after receiving Halcion as well as Haldol. I feel that it is unlikely that she is in fact allergic to either one of these two. DICYCLOMINE AND CAT DANDER ARE ALSO MENTIONED ALLERGIES. PHYSICAL EXAMINATION: GENERAL: She is slow to respond; however, she is alert, awake and oriented. VITAL SIGNS: Has a pulse of 95 and a blood pressure of 123/63, saturating 94% [place] [address] CONSULTATION Name: SATURNINO HENRY Room: [address]#: [id number] Admission: 07/21/21 Attend Phys: Jannie Nunez MD Discharge: Date of : 70 Report #: [id number] on 5 liters nasal cannula, and respiratory rate 18. Afebrile, temperature 36.0. HEENT: Head is normocephalic and atraumatic. Pupils are equal and reactive. There is no throat erythema, narrow airway, Mallampati 4. NECK: Does not show raised JVP. CHEST: Breath sounds are bilaterally equal, decreased. No added sounds. HEART: Regular. There is no murmur. ABDOMEN: Soft and nontender. EXTREMITIES: Lower extremities show minimal edema, no calf tenderness. SKIN: Dry and intact. NEUROLOGIC: No focal deficit. DIAGNOSTIC DATA: The patient's CTA chest, which looks unremarkable, in [facility] reviewed. Chest x-ray, which I in fact repeated now, does not show any large infiltrates. The patient's ABGs are also in [facility]. These are reviewed. PCO2 initially was elevated to 54. ASSESSMENT/PLAN: 1. Acute on chronic hypercarbic respiratory failure, noninvasive mechanical ventilation while asleep is required for further treatment of the patient's chronic hypercarbic respiratory failure. Note that the patient's pH has now normalized, but the pCO2 is still elevated. This does point towards a chronic component. This is required to reduce readmission rate as well as to delay the patient's eventual . Therefore I recommend setting up a Trilogy or Astral device for home prior to discharge. We will keep her on average volume-assured pressure support while here. We will check oxygen needs prior to her discharge. 2. Chronic obstructive pulmonary disease exacerbation. Agree with Solu-Medrol as well as nebulized bronchodilators as currently prescribed. I do not see any large infiltrates on the chest x-ray; therefore I discontinued doxycycline. Continue ceftriaxone empirically. 3. Hypersomnia/sleep disturbances. The patient is on significant sedative medications. These are also contributing to her chronic respiratory failure. Recommend cutting back to the extent feasible. 4. Aspiration precautions. Recommend sitting up fully when taking orally. 5. Cardiac evaluation. There is a recent echo, shows normal left ventricular ejection fraction without elevation in right heart pressures. Thanks for this consultation. <ELECTRONICALLY SIGNED> By: Benji Juarez MD 07/28/21 1608 [id number] Juarez MD /nt
[2021-07-28 16:36] VITALS: BP 141/79
--- NOTE | 2021-07-28 17:40 | NUR ---
CM FOLLOWUP PT MEDICALLY CLEAR TO DC HOME WITH HH. HH PROVIDED BY [facility] ([phone]). PT TO DC WITH OXYGEN PROVIDED BY [facility] ([phone]). PT TO DC WITH TRILOGY ALSO PROVIDED BY [facility].
== END 2021-07-28 19:20 | disposition home health service (06) | DRG 177 ==
LOC: M.ERS 15:45 → M.TBA-ER 20:55 → M.2W 07-22 19:30 → M.3W 07-26 19:18
PROVIDERS: Internal Medicine; Internal Medicine Critical Care Medicine; Nurse Practitioner Family; ADMIT Internal Medicine; ATTEND Internal Medicine
DX: J15.6 Pneumonia due to other Gram-negative bacteria (principal); J96.21 Acute and chronic respiratory failure with hypoxia; J44.1 Chronic obstructive pulmonary disease with (acute) exacerbation; E66.2 Morbid (severe) obesity with alveolar hypoventilation; J44.0 Chronic obstructive pulmonary disease with (acute) lower respiratory infection; Z20.822 Contact with and (suspected) exposure to COVID-19; F31.9 Bipolar disorder, unspecified; G89.29 Other chronic pain; M54.9 Dorsalgia, unspecified; G62.9 Polyneuropathy, unspecified; E11.9 Type 2 diabetes mellitus without complications; E78.5 Hyperlipidemia, unspecified; G47.10 Hypersomnia, unspecified; F17.210 Nicotine dependence, cigarettes, uncomplicated; Z88.8 Allergy status to other drugs, medicaments and biological substances; Z82.49 Family history of ischemic heart disease and other diseases of the circulatory system; Z68.34 Body mass index [BMI] 34.0-34.9, adult; Z90.710 Acquired absence of both cervix and uterus